=== PATIENT | male | born 1990 | race African-American/Black ===

== ENCOUNTER 2019-04-17 16:51 | Emergency (ER) | payer SELFPAY ==
[~2019-04-17] VITALS: Ht 185.4 cm; Wt 122.5 kg
[2019-04-17] MEDS ORDERED: FENTANYL CITRATE/PF 100MCG/2 ML INJ IV ONE (17:00)
[2019-04-17] MEDS ORDERED: SODIUM CHLORIDE 0.9% 1000ML 1,000 ML IV SCH ×2 (17:00→18:30)
[2019-04-17] MEDS ORDERED: KETOROLAC TROMETHAMINE 30 MG/ML VIAL IV STA (17:00)
--- NOTE | 2019-04-17 17:50 | Diagnostic Imaging Report ---
EXAMINATION: Chest PA and lateral views INDICATION: Fell off the roof. pain. COMPARISON: None FINDINGS: TUBES and LINES: None. LUNGS: Lungs are well inflated. Lungs are clear. There is no evidence of pneumonia or pulmonary edema. PLEURA: No pleural effusion or pneumothorax. HEART AND MEDIASTINUM: The cardiomediastinal silhouette is unremarkable. BONES AND SOFT TISSUES: No acute osseous lesion. Soft tissues are unremarkable. UPPER ABDOMEN: No free air under the diaphragm. IMPRESSION: No acute thoracic abnormality. Signed by: Dr. Renny Milner M.D. on 04/17/2019 5:46 PM
--- NOTE | 2019-04-17 17:52 | Diagnostic Imaging Report ---
Thoracic Spine - 5 view(s) HISTORY: Pain COMPARISON: None FINDINGS: Superimposed structures and attenuation partially limit bone detail. The alignment is normal. No displaced fracture or compression deformity is identified. The disc spaces are well-maintained. IMPRESSION: No acute radiographic abnormality. Signed by: Dr. Renny Milner M.D. on 04/17/2019 5:49 PM
--- NOTE | 2019-04-17 18:21 | Diagnostic Imaging Report ---
History: Fell from a Comparison studies: None Technique: Axial images were obtained through the cervical region.. Coronal and sagittal images reconstructed from the axial data. Dose modulation, iterative reconstruction, and/or weight based adjustment of the mA/kV was utilized to reduce the radiation dose to as low as reasonably achievable. Intravenous contrast: None Findings: Fractures: None. Soft tissues: No gross abnormalities. Atlantoaxial articulation: Intact. Alignment: Normal lordosis. No scoliosis. Cervicomedullary junction: No abnormalities. The foramen magnum is patent. Vertebrae: No infection or neoplasm. Degenerative changes: None. IMPRESSION: 1. No abnormalities. 2. Cannot adequately evaluate for ligament, spinal cord and or vascular abnormalities. Signed by: Dr. Kirill Biswas M.D. on 04/17/2019 6:18 PM
--- NOTE | 2019-04-17 18:26 | Diagnostic Imaging Report ---
History: Fell from a roof Comparison studies: None Technique: Axial were obtained from the inferior T11 through superior S3. Coronal and sagittal images reconstructed from the axial data. Dose modulation, iterative reconstruction, and/or weight based adjustment of the mA/kV was utilized to reduce the radiation dose to as low as reasonably achievable. Intravenous contrast: None Findings: Alignment: Normal lordosis . No scoliosis . Soft tissues: No abnormalities. Paraspinal muscles: Well-preserved. No atrophy . Vertebrae: Normal in height and density from T12 to S2 . No compression fractures, infection or neoplasm. Degenerative changes: L1-L2: None. L2-L3: None. L3-L4: Normal disc. No significant spinal canal or foraminal stenosis in spite of a disc bulge. L4-L5: Normal disc. No significant spinal canal or foraminal stenosis in spite of a disc bulge. L5-S1: Mildly degenerated disc. Mild bilateral foraminal stenosis is due to endplate osteophytes. Patent spinal canal. IMPRESSION: 1. No acute abnormalities. No fractures. 2. Cannot adequately evaluate for ligament, conus and or vascular abnormalities. 3. Mildly degenerated disc and mild bilateral foraminal stenosis at L5-S1. Signed by: Dr. Kirill Biswas M.D. on 04/17/2019 6:22 PM
[2019-04-17] MEDS ORDERED: ULTRAM50 MG PO (18:44)
[2019-04-17] MEDS ORDERED: COLACE100 MG PO (18:44)
[2019-04-17] MEDS ORDERED: CYCLOBENZAPRINE5 MG PO (18:44)
[2019-04-17] MEDS ORDERED: FENTANYL CITRATE/PF 100MCG/2 ML INJ ONE (18:55)
--- NOTE | 2019-04-17 18:56 | Diagnostic Imaging Report ---
EXAM: CT Abdomen and Pelvis WITH contrast INDICATION: Fell off roof. Pain. COMPARISON: None. TECHNIQUE: Abdomen and pelvis were scanned utilizing a multidetector helical scanner from the lung base to the pubic symphysis after administration of IV contrast. Coronal and sagittal reformations were obtained. Routine protocol was performed. Scan was performed when during portal venous phase. IV CONTRAST: 150 mL of Omnipaque 300 ORAL CONTRAST: Water RADIATION DOSE: Total DLP: 828.67 mGy*cm Estimated effective dose: (DLP x 0.015 x size factor) mSv COMPLICATIONS: None FINDINGS: LINES and TUBES: None. LOWER THORAX: Unremarkable HEPATOBILIARY: 1.8 cm low-attenuation lesion in the medial lateral segment of the left hepatic lobe adjacent to the falciform ligament fissure on image 17 series 2 may represent focal fatty infiltration. No biliary ductal dilation. GALLBLADDER: No radio-opaque stones or sludge. No wall thickening. SPLEEN: No splenomegaly. PANCREAS: No focal masses or ductal dilatation. ADRENALS: No adrenal nodules KIDNEYS/URETERS: Kidneys enhance symmetrically. No hydronephrosis. No cystic or solid mass lesions. No stones. GI TRACT: No abnormal distention, wall thickening, or evidence of bowel obstruction. Appendix is normal. PELVIC ORGANS/BLADDER: Unremarkable. LYMPH NODES: No lymphadenopathy. VESSELS: Unremarkable. PERITONEUM / RETROPERITONEUM: No free air or fluid. BONES: Posterior disc osteophyte complex at L5-S1. SOFT TISSUES: Unremarkable. IMPRESSION: 1. No acute abdominal pelvic abnormality. Signed by: Dr. Renny Milner M.D. on 04/17/2019 6:53 PM
[2019-04-17] MEDS ORDERED: POTASSIUM CHLORIDE 20 MEQ TAB CR PO NR (19:00)
[2019-04-17] MEDS ORDERED: POTASSIUM CHLORIDE 20 MEQ TAB CR PO ONE (19:10)
[2019-04-17] MEDS ORDERED: SODIUM CHLORIDE 0.9% 1000ML 1,000 ML ONE (19:10)
== END 2019-04-17 20:55 | disposition home or self-care (01) ==
LOC: FSED 16:51
DX: G89.11 Acute pain due to trauma (principal); I10 Essential (primary) hypertension; E87.6 Hypokalemia; W17.89XA Other fall from one level to another, initial encounter; Y93.H3 Activity, building and construction; Y92.61 Building [any] under construction as the place of occurrence of the external cause; Y99.0 Civilian activity done for income or pay
CPT/HCPCS: 71046; 72070; 72125; 72131; 74177; 80053; 81003; 85025; 99284; J1885; J3010; J7030